=== PATIENT | female | born 1980 | race Caucasian/White ===

== ENCOUNTER → 2019-01-23 | Outpatient (REF) | payer OTHER ==
[~2019-01-23] MED LIST: NAPR-885 PO
== END ==
LOC: M LAB REF 17:57
PROVIDERS: ATTEND Physician Assistant
DX: R00.2 Palpitations (principal); R06.02 Shortness of breath; F41.1 Generalized anxiety disorder

== ENCOUNTER 2019-03-20 22:16 | Emergency (ER) | payer OTHER ==
[~2019-03-20] VITALS: Ht 162.6 cm; Wt 54.5 kg
[2019-03-20] MEDS ORDERED: METO1TAB32 PO (22:26)
[2019-03-20] MEDS ORDERED: HYDR-3363 PO (22:26)
[2019-03-20 23:56] VITALS: BP 107/77
--- NOTE | 2019-03-21 05:55 | ECGEPIP ---
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
== END 2019-03-21 00:41 | disposition left against medical advice (07) ==
LOC: M ED 22:16
DX: Z53.29 Procedure and treatment not carried out because of patient's decision for other reasons (principal)

== ENCOUNTER 2019-04-12 15:54 | Emergency (ER) | payer OTHER ==
[~2019-04-12] VITALS: Ht 160 cm; Wt 54.5 kg
[~2019-04-12 15:54] MED LIST changes: +HYDR-3363 PO; +METO1TAB32 PO
[2019-04-12 17:55] LABS: AMPHETAMINES LEVEL URINE NEGATIVE (NEGATIVE); BARBITURATES URINE NEGATIVE (NEGATIVE); BENZODIAZEPINES URINE NEGATIVE (NEGATIVE); CANNABINOIDS URINE POSITIVE (NEGATIVE); COCAINE METABOLITE URINE NEGATIVE (NEGATIVE); METHADONE URINE NEGATIVE (NEGATIVE); OPIATES URINE NEGATIVE (NEGATIVE); PHENCYCLIDINE URINE NEGATIVE (NEGATIVE)
[2019-04-12 17:56] LABS: ALBUMIN 4.1 GM/DL (3.2-5.2); ALT/SGPT 28 U/L (12-78); BILIRUBIN,TOTAL 0.7 MG/DL (0.2-1.0); BLOOD UREA NITROGEN 12 MG/DL (7-18); CALCIUM LEVEL 9.1 MG/DL (8.5-10.1); CARBON DIOXIDE LEVEL 27 MEQ/L (21-32); CHLORIDE LEVEL 107 MEQ/L (98-107); CK-MB VALUE MASS < 1.0 NG/ML (<3.6); CPK CREATINE PHOSPHOKINASE 127 U/L (26-192); CREATININE FOR GFR 0.64 MG/DL (0.55-1.30); GLOMERULAR FILTRATION RATE > 60.0 (>60); GLUCOSE, FASTING 86 MG/DL (70-100); HCG, SERUM QUANTITATIVE < 1.0 MIU/ML; MB/CK RELATIVE INDEX 0.79 (< OR =4); POTASSIUM SERUM 4.5 MEQ/L (3.5-5.1); SODIUM LEVEL 138 MEQ/L (136-145); THYROID STIMULATING HORMONE 0.997 uIU/ML (0.358-3.740); TOTAL PROTEIN 7.7 GM/DL (6.4-8.2); TROPONIN I < 0.02 NG/ML (< 0.10)
[2019-04-12 18:06] LABS: HEMATOCRIT 43.1 % (36.0-47.0); HEMOGLOBIN 14.8 g/dl (12.0-15.5); MEAN CORPUSCULAR HEMOGLOBIN 33.7 pg (27.0-33.0); MEAN CORPUSCULAR HGB CONC 34.3 g/dl (32.0-36.5); MEAN CORPUSCULAR VOLUME 98.2 fl (80.0-96.0); PLATELET COUNT, AUTOMATED 266 10^3/uL (150-450); RED BLOOD COUNT 4.39 10^6/uL (4.00-5.40); WHITE BLOOD COUNT 8.3 10^3/uL (4.0-10.0)
[2019-04-12] MEDS ORDERED: PRED20TA PO (19:53)
[2019-04-12] MEDS ORDERED: EPIP0.3I2 IM (19:53)
[2019-04-12] MEDS ORDERED: Holter Monitor (20:01)
[2019-04-12 20:07] VITALS: BP 107/58
--- NOTE | 2019-04-13 09:16 | REP ---
Chest x-ray: Two views. History: Palpitations . Comparison study: No comparison chest x-ray . Findings: The lungs are well inflated and free of infiltrate. The pleural angles are sharp. The heart size is normal. Pulmonary vasculature is not increased. No significant bony abnormality is seen. EKG monitoring electrodes are seen. Impression: Negative chest x-ray. Electronically Signed by Juan Alberto Flores MD 04/13/2019 09:08 A
--- NOTE | 2019-04-14 16:43 | ECGEPIP ---
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
== END 2019-04-12 20:18 | disposition home or self-care (01) ==
LOC: M ED 15:54
DX: R00.2 Palpitations (principal); I49.1 Atrial premature depolarization; Z72.0 Tobacco use; Z79.899 Other long term (current) drug therapy

== ENCOUNTER → 2019-04-16 | Outpatient (CLI) | payer OTHER ==
[~2019-04-16] MED LIST changes: +EPIP0.3I2 IM; +Holter Monitor; +PRED20TA PO
--- NOTE | 2019-04-20 18:48 | HOLTMON ---
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 No activity reported with the maximum heart rate. No pause. Rare isolated PACs. No supraventricular run. Very rare isolated PVCs. No ventricular run. Symptoms: Palpitations, no associated arrhythmias. Relatively normal Holter monitor Electronically Signed on 04-20-2019 18:48:26 EDT by Feliberto Gilliam
== END ==
LOC: M EKG 10:09
PROVIDERS: ATTEND Internal Medicine
DX: R00.2 Palpitations (principal)

== ENCOUNTER 2020-10-07 20:13 | Emergency (ER) | payer OTHER ==
[~2020-10-07] VITALS: Ht 162.6 cm; Wt 63.0 kg
[2020-10-07] MEDS ORDERED: FLUO10CA16 PO (20:23)
[2020-10-07 22:19] LABS: BASO % 0.4 % (0.0-1.0); EOS # 0.1 10^3/uL (0.0-0.5); EOS % 0.8 % (0.0-3.0); HEMATOCRIT 38.2 % (36.0-47.0); HEMOGLOBIN 12.9 g/dl (12.0-15.5); LYMPH # 2.3 10^3/uL (1.5-5.0); LYMPH % 20.6 % (24.0-44.0); MEAN CORPUSCULAR HGB CONC 33.8 g/dl (32.0-36.5); MEAN CORPUSCULAR VOLUME 100.8 fl (80.0-96.0); MONO % 9.2 % (0.0-5.0); NEUTROPHILS # 7.7 10^3/uL (1.5-8.5); NEUTROPHILS % 68.6 % (36.0-66.0); PLATELET COUNT, AUTOMATED 272 10^3/uL (150-450); RED BLOOD COUNT 3.79 10^6/uL (4.00-5.40); WHITE BLOOD COUNT 11.1 10^3/uL (4.0-10.0)
[2020-10-07 22:57] LABS: BLOOD UREA NITROGEN 12 MG/DL (7-18); CALCIUM LEVEL 8.5 MG/DL (8.5-10.1); CARBON DIOXIDE LEVEL 27 MEQ/L (21-32); CHLORIDE LEVEL 105 MEQ/L (98-107); CREATININE FOR GFR 0.98 MG/DL (0.55-1.30); GLOMERULAR FILTRATION RATE > 60.0 (>60); GLUCOSE, FASTING 100 MG/DL (70-100); HCG, SERUM QUANTITATIVE 41822 MIU/ML; POTASSIUM SERUM 3.9 MEQ/L (3.5-5.1); SODIUM LEVEL 136 MEQ/L (136-145)
--- NOTE | 2020-10-08 00:56 | REPVR ---
PROCEDURE INFORMATION: Exam: US First Trimester, Transabdominal Exam date and time: 10/08/2020 12:30 AM Age: 40 years old Clinical indication: Lmp or gestational age (in weeks): 9 weeks 3 days; Other: Vaginal spotting x 5 days; ; Prior surgery; Surgery date: 6+ months; Surgery type: ; Additional info: with vag bleeding, unsure how far along TECHNIQUE: Imaging protocol: Real-time transabdominal obstetrical ultrasound of the maternal pelvis and a first trimester , less than 14 weeks 0 days, with image documentation. COMPARISON: No relevant prior studies available. FINDINGS: Gestation: Gestational sac within the uterus with pole. Embryonic/ heart rate: heartbeat of 165 bpm. Placenta: Unremarkable. No subchorionic bleed. Amniotic fluid: Amniotic fluid is normal for gestational age. BIOMETRY: [place]-Rump length: The crown-rump length is 26 mm suggesting an age of 9 weeks 3 days. The EDC is 05/10/2021. MATERNAL: Uterus: Unremarkable. Cervix: Unremarkable. Right adnexa: The right ovary measures 5.1 x 2.8 x 4.2 cm and demonstrates normal blood flow. There is a cyst measuring 4.5 x 2.2 x 3.0 cm. Left adnexa: The left ovary is not seen. Intraperitoneal space: No intraperitoneal free fluid. Urinary bladder: The maternal uterus bladder demonstrates internal debris. IMPRESSION: 1. Early single live intrauterine gestation with an estimated age of 9 weeks 3 days. The EDC is 05/10/2021. 2. Debris is noted within the maternal urinary bladder. Electronically signed by: Ronny Bassett On 10/08/2020 00:56:56 AM
[2020-10-08 01:31] VITALS: BP 128/79
== END 2020-10-08 01:33 | disposition home or self-care (01) ==
LOC: M ED 20:13
DX: Z32.01 Encounter for pregnancy test, result positive (principal); O09.521 Supervision of elderly multigravida, first trimester; O99.331 Smoking (tobacco) complicating pregnancy, first trimester; Z3A.09 9 weeks gestation of pregnancy

== ENCOUNTER → 2022-03-21 | Outpatient (REF) | payer OTHER ==
[~2022-03-21] MED LIST changes: +FLUO10CA18 PO; +FLUO40CA PO
== END ==
LOC: M SFHCWAGY 10:14
PROVIDERS: ATTEND Obstetrics & Gynecology
DX: N87.1 Moderate cervical dysplasia (principal); Z12.4 Encounter for screening for malignant neoplasm of cervix; Z77.9 Other contact with and (suspected) exposures hazardous to health

== ENCOUNTER → 2024-05-14 | Outpatient (CLI) | payer OTHER ==
[~2024-05-14] MED LIST changes: +FLUO-290 PO; -FLUO10CA18 PO
[2024-05-16 13:32] LABS: MUMPS VIRUS IgG ANTIBODY < 9.00 AU/mL (>10.99)
== END ==
LOC: M LAB 13:04
PROVIDERS: ATTEND Physician Assistant Medical
DX: Z23 Encounter for immunization (principal)